=== PATIENT | male | born 2000 | race African-American/Black ===

== ENCOUNTER 2022-01-16 01:40 | Emergency (ER) | payer MEDICAID ==
[~2022-01-16] VITALS: Ht 182.9 cm; Wt 86.4 kg
[~2022-01-16 01:40] MED LIST: RISPERDAL 0.5M0.5 MG PO; [UNRECOGNIZED DRUG - REMARK]
[2022-01-16] MEDS ORDERED: PREDNISONE20 MG PO (04:58)
[2022-01-16 05:17] VITALS: BP 122/89; PULSE 85; TEMP 98.6
== END 2022-01-16 05:17 ==
LOC: COL.ER 01:40
DX: J45.901 Unspecified asthma with (acute) exacerbation (principal); Z59.01 Sheltered homelessness; Z28.310 Unvaccinated for COVID-19
CPT/HCPCS: J7512

== ENCOUNTER 2023-10-04 01:07 | Emergency (ER) | payer MEDICAID ==
[~2023-10-04] VITALS: Ht 170.2 cm; Wt 63.6 kg
[~2023-10-04 01:07] MED LIST changes: +PREDNISONE20 MG PO
[2023-10-04 01:18] VITALS: TEMP 98.3
[2023-10-04 01:43] LABS: COLLECTION METHOD CLEAN CATCH
[2023-10-04 01:51] LABS: URINE APPEARANCE CLEAR (CLEAR/HAZY); URINE BLOOD NEGATIVE (NEGATIVE); URINE COLOR YELLOW (YELLOW); URINE GLUCOSE NEGATIVE (NEGATIVE); URINE KETONE NEGATIVE (NEGATIVE); URINE NITRATE NEGATIVE (NEGATIVE); URINE PROTEIN(semi-quant) NEGATIVE (NEGATIVE)
[2023-10-04] MEDS ORDERED: PROAIR HFA0.09 MG/AC IH (01:52)
[2023-10-04] MEDS ORDERED: SINGULAIR 110 MG/TAB (01:52)
[2023-10-04] MEDS ORDERED: LITHIUM 30300 MG/CAP PO (01:52)
[2023-10-04 01:59] LABS: BASO # 0.1 K/mm3 (0.0-0.2); BASO % 0.5 % (0.0-2.0); EOS # 0.8 K/mm3 (0.0-0.7); EOS % 5.9 % (0.0-4.0); GRAN # 6.8 K/mm3 (1.4-6.5); GRAN % 52.9 % (42.2-75.2); HEMATOCRIT 41.7 % (42.0-52.0); HEMOGLOBIN 14.3 g/dl (13.5-18.0); LYMPH # 4.6 K/mm3 (1.2-3.4); LYMPH % 35.7 % (20.0-51.0); MEAN CELL VOLUME 92 fl (80.0-100.0); MEAN CORPUSCULAR HEMOGLOBIN 32 pg (27-31); MEAN CORPUSCULAR HGB CONC 34 g/dl (33.0-37.0); MEAN PLATELET VOLUME 9.1 fl (7.4-10.4); MONO # 0.6 K/mm3 (0.1-0.6); MONO % 4.5 % (1.7-9.3); PLATELET COUNT 231 K/mm3 (130-400); RED BLOOD COUNT 4.53 M/mm3 (4.20-5.60); REDCELL DISTRIBUTION WIDTH-CV 11.7 % (11.5-14.5)
[2023-10-04 02:03] LABS: TRICYCLIC ANTIDEPRESS URINE NEGATIVE (NEGATIVE)
[2023-10-04 02:15] LABS: ALANINE AMINOTRANSFERASE 13 U/L (0-55); ALBUMIN 3.8 g/dL (3.5-5.0); ALCOHOL(ethanol),MEDICAL < 10 mg/dL (0-10); ALKALINE PHOSPHATASE 47 U/L (40-150); ANION GAP 8 mmol/L (7-16); AST,SGOT 12 U/L (5-34); BILIRUBIN,TOTAL 0.7 mg/dL (0.2-1.2); BLOOD UREA NITROGEN 8 mg/dL (9-21); CALCIUM 9.8 mg/dL (8.4-10.2); CHLORIDE 109 mEq/L (98-107); GLUCOSE 86 mg/dL (70-99); SALICYLATE < 5.0 mg/dL (15.0-30.0); SODIUM 138 mEq/L (136-145); TOTAL PROTEIN 7.1 g/dl (6.2-8.1)
[2023-10-04 02:33] LABS: CREATININE, serum 0.78 mg/dL (0.72-1.25)
[2023-10-04 05:16] VITALS: BP 116/75; PULSE 66
== END 2023-10-04 05:16 | disposition home or self-care (01) ==
LOC: COL.ER 01:07
PROVIDERS: Emergency Medicine
DX: R45.851 Suicidal ideations (principal); Z86.59 Personal history of other mental and behavioral disorders

== ENCOUNTER 2024-01-06 23:12 | Emergency (ER) | payer OTHER ==
[~2024-01-06] VITALS: Ht 180.3 cm; Wt 65.9 kg
[~2024-01-06 23:12] MED LIST changes: +LITHIUM 30300 MG/CAP PO; +PROAIR HFA0.09 MG/AC IH; +SINGULAIR 110 MG/TAB
[2024-01-06 23:19] VITALS: TEMP 98
[2024-01-07 00:16] LABS: COLLECTION METHOD CLEAN CATCH
[2024-01-07 00:37] LABS: PH 5.5 (5.0-8.5); URINE APPEARANCE CLEAR (CLEAR/HAZY); URINE BLOOD NEGATIVE (NEGATIVE); URINE COLOR Dark Yellow (YELLOW); URINE GLUCOSE NEGATIVE (NEGATIVE); URINE KETONE TRACE (NEGATIVE); URINE NITRATE NEGATIVE (NEGATIVE); URINE PROTEIN(semi-quant) TRACE (NEGATIVE)
[2024-01-07 00:52] LABS: BASO # 0.1 K/mm3 (0.0-0.2); BASO % 0.4 % (0.0-2.0); EOS # 0.8 K/mm3 (0.0-0.7); EOS % 5.9 % (0.0-4.0); GRAN % 54.5 % (42.2-75.2); HEMATOCRIT 40.1 % (42.0-52.0); HEMOGLOBIN 13.8 g/dl (13.5-18.0); LYMPH % 31.3 % (20.0-51.0); MEAN CELL VOLUME 91 fl (80.0-100.0); MEAN CORPUSCULAR HEMOGLOBIN 31 pg (27-31); MEAN CORPUSCULAR HGB CONC 34 g/dl (33.0-37.0); MEAN PLATELET VOLUME 9.1 fl (7.4-10.4); MONO % 7.7 % (1.7-9.3); PLATELET COUNT 222 K/mm3 (130-400); RED BLOOD COUNT 4.39 M/mm3 (4.20-5.60); REDCELL DISTRIBUTION WIDTH-CV 11.4 % (11.5-14.5)
[2024-01-07 00:55] LABS: TRICYCLIC ANTIDEPRESS URINE NEGATIVE (NEGATIVE)
[2024-01-07 01:03] LABS: ALANINE AMINOTRANSFERASE 12 U/L (0-55); ALKALINE PHOSPHATASE 47 U/L (40-150); ANION GAP 9 mmol/L (7-16); AST,SGOT 29 U/L (5-34); BILIRUBIN,TOTAL 1.2 mg/dL (0.2-1.2); BLOOD UREA NITROGEN 13 mg/dL (9-21); CALCIUM 9.2 mg/dL (8.4-10.2); CHLORIDE 107 mEq/L (98-107); CREATININE, serum 0.89 mg/dL (0.72-1.25); GLUCOSE 91 mg/dL (70-99); POTASSIUM 3.8 mEq/L (3.5-4.5); SODIUM 138 mEq/L (136-145); TOTAL PROTEIN 6.9 g/dl (6.2-8.1)
[2024-01-07 01:07] LABS: ALCOHOL(ethanol),MEDICAL < 10 mg/dL (0-10); SALICYLATE < 5.0 mg/dL (15.0-30.0)
[2024-01-07 01:23] LABS: TSH w REFLEX 1.495 uIU/mL (0.350-4.940)
[2024-01-07] MEDS ORDERED: Acetaminophen 500 MG TAB PO ONE (11:30)
[2024-01-07 12:10] VITALS: BP 118/66; PULSE 56
== END 2024-01-07 12:31 | disposition home or self-care (01) ==
LOC: COL.ER 23:12
PROVIDERS: Emergency Medicine
DX: S89.92XA Unspecified injury of left lower leg, initial encounter (principal); R45.851 Suicidal ideations; X58.XXXA Exposure to other specified factors, initial encounter